=== PATIENT | male | born 1995 | race Caucasian/White ===

== ENCOUNTER 2022-08-08 16:30 | Emergency (ER) | payer OTHER ==
[~2022-08-08 16:30] MED LIST: IBUPROFEN600 MG PO
[2022-08-08] MEDS ORDERED: IBUPROFEN600 MG PO (18:37)
== END 2022-08-08 18:53 | disposition home or self-care (01) ==
LOC: ER1 16:30
DX: S80.01XA Contusion of right knee, initial encounter (principal); E11.9 Type 2 diabetes mellitus without complications
CPT/HCPCS: 73564; 73590; 99283